=== PATIENT | male | born 1955 | race Hispanic/Latino ===

== ENCOUNTER 2022-09-09 09:40 | Outpatient (CLI) | payer MEDICARE | END 2022-09-09 09:41 | disposition home or self-care (01) | LOC: BICRAD 09:40 | PROVIDERS: ATTEND Family Medicine | DX: S40.012A Contusion of left shoulder, initial encounter (principal); S60.222A Contusion of left hand, initial encounter ==

== ENCOUNTER 2022-09-10 09:08 | Outpatient (CLI) | payer MEDICARE | END 2022-09-10 09:09 | disposition home or self-care (01) | LOC: BICRAD 09:08 | PROVIDERS: ATTEND Family Medicine | DX: R93.89 Abnormal findings on diagnostic imaging of other specified body structures (principal) | CPT/HCPCS: 71046 ==

== ENCOUNTER 2024-02-23 19:38 | Inpatient (IN) | payer MEDICARE ==
[2024-02-23 20:06] LABS: #Basophils Less than 0.03 10x3/uL (0.0-0.2); %Basophils 0.1 % (0.0-1.0); %Eosinophils 0.5 % (0.0-10.0); %Lymphocytes 7.7 % (21.0-51.0); %Monocytes 4.7 % (0.0-10.0); %Neutrophils 86.5 % (42.0-75.0); Hematocrit 38.9 % (42.0-52.0); Hemoglobin 13.3 g/dL (14.0-18.0); Mean Corpuscular HGB CONC 34.2 g/dL (32.0-36.0); Mean Corpuscular Hemoglobin 30.4 pg (27.0-31.0); Mean Corpuscular Volume 88.8 fL (78.0-98.0); Mean Platelet Volume 10.4 fL (7.4-10.4); Platelet Count 248 10x3/uL (130-400); RBC Distribution Width 13.2 % (11.5-14.5); Red Blood Cell (RBC) Count 4.38 mill/uL (4.70-6.10)
[2024-02-23 20:29] LABS: Acetaminophen Less than 10 mcg/mL (Less than 10); Alcohol Less than 10.0 mg/dL (Less than 10); Salicylate Less than 8.0 mg/dL (Less than 8.0)
[2024-02-23 20:34] LABS: Troponin I 0.029 ng/mL (< 0.028)
[2024-02-23] MEDS ORDERED: Morphine 4 MG/ML VIAL ONE (20:36)
[2024-02-23] MEDS ORDERED: Ondansetron PF 4 MG/2 ML Vial ONE (20:36)
[2024-02-23 20:38] LABS: ALT (SGPT) 14 U/L (8-55); AST (SGOT) 18 U/L (5-34); Albumin 3.4 g/dL (3.4-4.8); Alkaline Phosphatase 188 U/L (40-110); Anion Gap 22 mmol/L (10-20); BUN (Urea Nitrogen) 16 mg/dL (8.4-25.7); Bilirubin, Total 0.4 mg/dL (0.2-1.2); Calc. Creatinine Clearance 0 mL/min (70-130); Calcium 9.1 mg/dL (7.8-10.44); Carbon Dioxide 20 mmol/L (23-31); Chloride 96 mmol/L (98-107); Estimated GFR 62; Glucose 409 mg/dL (80-115); Potassium 5.1 mmol/L (3.5-5.1); Protein, Total 7.4 g/dL (5.8-8.1); Sodium 133 mmol/L (136-145)
[2024-02-23] MEDS ORDERED: Insulin Regular, Human 100 UNIT/ML 10 ML VIAL ONE (21:55)
[2024-02-24] MEDS ORDERED: traMADol HCl 50 MG TAB ONE ×2 (05:11→12:11)
[2024-02-24] MEDS ORDERED: Acetaminophen 500 MG TAB ONE ×2 (05:11→12:11)
[2024-02-24] MEDS ORDERED: Ibuprofen 200 MG TAB ONE (05:11)
[2024-02-24] MEDS ORDERED: Famotidine 20 MG TAB ONE (08:11)
[2024-02-24] MEDS ORDERED: Gabapentin 100 MG CAP ONE (08:11)
[2024-02-24] MEDS ORDERED: Carvedilol 25 MG TAB ONE (08:11)
[2024-02-26] MEDS: Gabapentin 100 MG CAP ONE ×4 (00:57→20:08)
[2024-02-26] MEDS: Ibuprofen 200 MG TAB ONE ×3 (00:57→15:49)
[2024-02-26] MEDS: Senokot S 8.6-50 MG TAB ONE ×5 (00:57→20:09)
[2024-02-26] MEDS: traMADol HCl 50 MG TAB ONE ×5 (00:58→15:51)
[2024-02-26] MEDS: Acetaminophen 500 MG TAB ONE ×6 (00:58→15:52)
[2024-02-26 02:05] LABS: #Basophils 0.01 10x3/uL (0.0-0.2); #Eosinophils 0.09 10x3/uL (0.0-0.7); #Monocytes 0.67 10x3/uL (0.11-0.59); #Neutrophils 5.75 10x3/uL (1.40-6.50); %Basophils 0.1 % (0.0-1.0); %Eosinophils 1.2 % (0.0-10.0); %Lymphocytes 14.3 % (21.0-51.0); %Monocytes 8.8 % (0.0-10.0); %Neutrophils 75.3 % (42.0-75.0); Hematocrit 34.9 % (42.0-52.0); Hemoglobin 11.7 g/dL (14.0-18.0); Mean Corpuscular HGB CONC 33.5 g/dL (32.0-36.0); Mean Corpuscular Hemoglobin 29.7 pg (27.0-31.0); Mean Corpuscular Volume 88.6 fL (78.0-98.0); Mean Platelet Volume 11.5 fL (7.4-10.4); Platelet Count 207 10x3/uL (130-400); RBC Distribution Width 13.3 % (11.5-14.5); Red Blood Cell (RBC) Count 3.94 mill/uL (4.70-6.10); White Blood Cell (WBC) Count 7.63 10x3/uL (4.8-10.8)
[2024-02-26] MEDS ORDERED: Dextrose 5% in Water 1,000 ML IV PRN (07:00)
[2024-02-26] MEDS ORDERED: Glucagon 1 MG/ML KIT IM PRN (07:00)
[2024-02-26] MEDS ORDERED: Dextrose 50% Abboject 50 ML SYRINGE SLOW IVP PRN (07:00)
[2024-02-26] MEDS ORDERED: Calcium Carbonate 500 MG ChewTAB PO PRN (07:01)
[2024-02-26] MEDS ORDERED: Ondansetron PF 4 MG/2 ML Vial IVP PRN (07:01)
[2024-02-26] MEDS ORDERED: Ondansetron ODT 4 MG TAB PO PRN (07:01)
[2024-02-26 07:28] LABS: #Basophils Less than 0.03 10x3/uL (0.0-0.2); %Basophils 0.1 % (0.0-1.0); %Eosinophils 0.7 % (0.0-10.0); %Lymphocytes 13.7 % (21.0-51.0); %Monocytes 7.6 % (0.0-10.0); %Neutrophils 77.5 % (42.0-75.0); Hematocrit 35.2 % (42.0-52.0); Hemoglobin 11.7 g/dL (14.0-18.0); Mean Corpuscular HGB CONC 33.2 g/dL (32.0-36.0); Mean Corpuscular Hemoglobin 29.5 pg (27.0-31.0); Mean Corpuscular Volume 88.7 fL (78.0-98.0); Platelet Count 215 10x3/uL (130-400); RBC Distribution Width 13.2 % (11.5-14.5); Red Blood Cell (RBC) Count 3.97 mill/uL (4.70-6.10)
[2024-02-26 07:40] LABS: Anion Gap 16 mmol/L (10-20); BUN (Urea Nitrogen) 27 mg/dL (8.4-25.7); Calc. Creatinine Clearance 0 mL/min (70-130); Calcium 8.4 mg/dL (7.8-10.44); Carbon Dioxide 21 mmol/L (23-31); Chloride 97 mmol/L (98-107); Estimated GFR 52; Glucose 381 mg/dL (80-115); Potassium 4.1 mmol/L (3.5-5.1); Sodium 130 mmol/L (136-145)
[2024-02-26 08:33] LABS: Anion Gap 17 mmol/L (10-20); BUN (Urea Nitrogen) 21 mg/dL (8.4-25.7); Calc. Creatinine Clearance 0 mL/min (70-130); Calcium 8.5 mg/dL (7.8-10.44); Carbon Dioxide 22 mmol/L (23-31); Chloride 99 mmol/L (98-107); Estimated GFR 68; Glucose 167 mg/dL (80-115); Magnesium 1.9 mg/dL (1.6-2.6); Potassium 3.8 mmol/L (3.5-5.1); Sodium 134 mmol/L (136-145)
[2024-02-26] MEDS ORDERED: Acetaminophen 325 MG TAB PO SCH (09:00)
[2024-02-26 14:26] LABS: Troponin I Less than 0.010 ng/mL (< 0.028)
[2024-02-26] MEDS: Carvedilol 25 MG TAB ONE ×4 (14:43→17:32)
[2024-02-26] MEDS: Acetaminophen 325 MG TAB PO SCH (14:43)
[2024-02-26] MEDS: Acetaminophen 325 MG TAB ONE (14:44)
[2024-02-26] MEDS: Lorazepam 1 MG TAB ONE (14:44)
[2024-02-26] MEDS: Famotidine 20 MG TAB PO SCH (14:44)
[2024-02-26] MEDS: Famotidine 20 MG TAB ONE ×2 (14:44→15:50)
[2024-02-26] MEDS: Insulin Glargine 30 UNITS/0.3 ML VIAL ONE ×2 (14:44→15:51)
[2024-02-26] MEDS: Insulin Glargine 30 UNITS/0.3 ML VIAL SC SCH ×2 (14:44→20:01)
[2024-02-26] MEDS: Senokot S 8.6-50 MG TAB PO SCH (14:44)
[2024-02-26] MEDS: Sodium Chloride 0.9% 1,000 ML IV SCH (14:53)
[2024-02-26] MEDS ORDERED: hydrALAZINE 25 MG TAB PO PRN (15:47)
[2024-02-26] MEDS: Famotidine/PF 20 mg/2ml Vial ONE (15:51)
[2024-02-26] MEDS: Insulin Lispro 100 UNIT/ML 10 ML VIAL ONE (15:51)
[2024-02-26] MEDS: Acetaminophen 500 MG TAB PO SCH (17:32)
[2024-02-26] MEDS: Carvedilol 25 MG TAB PO SCH (17:32)
[2024-02-26] MEDS: DorzolamidE/Timolol 2%/0.5% Ophth Soln 10 ml Bottle L EYE SCH (17:32)
[2024-02-26] MEDS: Rosuvastatin 20 MG TAB PO SCH (20:01)
[2024-02-26] MEDS: Methocarbamol 500 MG TAB PO PRN (20:02)
[2024-02-26] MEDS: traMADol HCl 50 MG TAB PO PRN (20:03)
[2024-02-26] MEDS: Tamsulosin HCl 0.4 MG CAP PO SCH (20:07)
[2024-02-26] MEDS: Atorvastatin Calcium 40 MG TAB PO SCH (20:07)
[2024-02-26] MEDS ORDERED: prednisoLONE 1% Ophth Susp 5 ml Bottle L EYE SCH (21:00)
[2024-02-26] MEDS: QUEtiapine 25 MG TAB PO SCH (22:45)
[2024-02-27 05:33] LABS: #Basophils Less than 0.03 10x3/uL (0.0-0.2); %Basophils 0.2 % (0.0-1.0); %Eosinophils 1.9 % (0.0-10.0); %Lymphocytes 18.9 % (21.0-51.0); %Monocytes 8.4 % (0.0-10.0); %Neutrophils 70.4 % (42.0-75.0); Hematocrit 33.3 % (42.0-52.0); Hemoglobin 11.1 g/dL (14.0-18.0); Mean Corpuscular HGB CONC 33.3 g/dL (32.0-36.0); Mean Corpuscular Hemoglobin 29.1 pg (27.0-31.0); Mean Corpuscular Volume 87.2 fL (78.0-98.0); Mean Platelet Volume 11.2 fL (7.4-10.4); Platelet Count 211 10x3/uL (130-400); Red Blood Cell (RBC) Count 3.82 mill/uL (4.70-6.10)
[2024-02-27 06:05] LABS: ALT (SGPT) 7 U/L (8-55); AST (SGOT) 15 U/L (5-34); Albumin 2.6 g/dL (3.4-4.8); Alkaline Phosphatase 138 U/L (40-110); Anion Gap 13 mmol/L (10-20); BUN (Urea Nitrogen) 14 mg/dL (8.4-25.7); Bilirubin, Total 0.4 mg/dL (0.2-1.2); Calc. Creatinine Clearance 0 mL/min (70-130); Carbon Dioxide 23 mmol/L (23-31); Chloride 103 mmol/L (98-107); Estimated GFR 95; Globulin 3.5 g/dL (2.4-3.5); Glucose 185 mg/dL (80-115); Magnesium 1.8 mg/dL (1.6-2.6); Potassium 3.4 mmol/L (3.5-5.1); Protein, Total 6.1 g/dL (5.8-8.1); Sodium 136 mmol/L (136-145)
[2024-02-27] MEDS: Finasteride 5 MG TAB PO SCH (08:48)
[2024-02-27] MEDS: traMADol HCl 50 MG TAB ONE ×2 (08:48→17:07)
[2024-02-27] MEDS: Gabapentin 100 MG CAP ONE ×2 (08:49→15:17)
[2024-02-27] MEDS: Clopidogrel Bisulfate 75 MG TAB PO SCH (08:50)
[2024-02-27] MEDS: Famotidine 20 MG TAB ONE (08:50)
[2024-02-27] MEDS: Ibuprofen 200 MG TAB ONE (08:50)
[2024-02-27] MEDS: Senokot S 8.6-50 MG TAB ONE (08:51)
[2024-02-27] MEDS: Aspirin 81 mg Enteric Coated Tablet PO SCH (08:51)
[2024-02-27] MEDS: Pantoprazole DR 40 MG TAB PO SCH (08:51)
[2024-02-27] MEDS: Insulin Glargine 30 UNITS/0.3 ML VIAL ONE (13:27)
[2024-02-27] MEDS: Lorazepam 1 MG TAB PO SCH (15:17)
[2024-02-27] MEDS: Potassium Chloride 20 MEQ TAB PO SCH (15:18)
[2024-02-27] MEDS: Amlodipine 10 MG TAB PO SCH (15:19)
[2024-02-27] MEDS: Magnesium Oxide 400 MG TAB PO SCH (15:19)
[2024-02-27] MEDS: Carvedilol 25 MG TAB ONE (17:04)
[2024-02-27] MEDS: Insulin Regular, Human 100 UNIT/ML 10 ML VIAL SC PRN (21:10)
[2024-02-28 03:05] VITALS: BMI 37.7
[2024-02-28 05:46] LABS: Anion Gap 14 mmol/L (10-20); BUN (Urea Nitrogen) 12 mg/dL (8.4-25.7); Calc. Creatinine Clearance 103 mL/min (70-130); Carbon Dioxide 20 mmol/L (23-31); Chloride 104 mmol/L (98-107); Estimated GFR 95; Glucose 255 mg/dL (80-115); Magnesium 1.7 mg/dL (1.6-2.6); Sodium 134 mmol/L (136-145)
[2024-02-28] MEDS: Insulin Regular, Human 100 UNIT/ML 10 ML VIAL SC PRN (05:53)
[2024-02-28] MEDS: Famotidine/PF 20 mg/2ml Vial ONE (09:28)
[2024-02-28] MEDS: Magnesium Oxide 400 MG TAB PO SCH (09:29)
[2024-02-28] MEDS: Gabapentin 100 MG CAP ONE (09:30)
[2024-02-28] MEDS: Insulin Glargine 30 UNITS/0.3 ML VIAL ONE (09:30)
[2024-02-28] MEDS: Carvedilol 25 MG TAB ONE ×2 (09:30→17:21)
[2024-02-28] MEDS: Famotidine 20 MG TAB ONE (09:30)
[2024-02-28] MEDS: Senokot S 8.6-50 MG TAB ONE (09:30)
[2024-02-28] MEDS: Amlodipine 10 MG TAB PO SCH (09:31)
[2024-02-28] MEDS: Enoxaparin 40 MG (0.4 mL) SYRINGE SC SCH (09:31)
[2024-02-28] MEDS: Lorazepam 1 MG TAB PO SCH (13:31)
[2024-02-28] MEDS: traMADol HCl 50 MG TAB ONE (13:32)
[2024-02-28] MEDS: Ziprasidone 20 MG VIAL IM SCH (20:58)
[2024-02-28] MEDS: Sterile Water 10 ML VIAL FS SCH (20:58)
[2024-02-28] MEDS: Insulin Glargine 30 UNITS/0.3 ML VIAL SC SCH (21:08)
[2024-02-28 22:46] LABS: Amphetamine Not Detected (NotDetected); Barbiturates Screen Not Detected (NotDetected); Benzodiazepine Screen Detected (NotDetected); Cocaine Metabolite Screen Not Detected (NotDetected); Methadone Not Detected (NotDetected); Methamphetamine Not Detected (NotDetected); Opiate Screen Not Detected (NotDetected); Oxycodone Screen Not Detected (NotDetected); Phencyclidine (PCP) Not Detected (NotDetected); THC/Cannabinoid Screen Not Detected (NotDetected); Tricyclic Screen Not Detected (NotDetected)
[2024-02-29 04:05] LABS: Anion Gap 14 mmol/L (10-20); BUN (Urea Nitrogen) 12 mg/dL (8.4-25.7); Calc. Creatinine Clearance 110 mL/min (70-130); Calcium 8.6 mg/dL (7.8-10.44); Carbon Dioxide 21 mmol/L (23-31); Chloride 103 mmol/L (98-107); Estimated GFR 96; Glucose 183 mg/dL (80-115); Magnesium 1.7 mg/dL (1.6-2.6); Potassium 3.6 mmol/L (3.5-5.1); Sodium 134 mmol/L (136-145)
[2024-02-29 04:25] LABS: HIV (1/2) Antibody/Antigen NONREACTIVE (NonReactive); HIV 1/2 INDEX 0.08 S/CO (<1.00)
[2024-02-29 06:23] LABS: Vitamin B12 581 pg/mL (211-911)
[2024-02-29 10:54] LABS: Syphilis Antibody Nonreactive (Nonreactive); Syphilis Antibody Index 0.06 S/CO (<1.00 Non-Reactive)
[2024-02-29] MEDS: Famotidine 20 MG TAB ONE (12:31)
[2024-02-29] MEDS: Carvedilol 25 MG TAB ONE (12:31)
[2024-02-29] MEDS: Folic Acid 1 MG TAB PO SCH (12:32)
[2024-02-29] MEDS: Cyanocobalamin (Vitamin B-12) 1,000 MCG TAB PO SCH (12:32)
[2024-02-29] MEDS: Famotidine/PF 20 mg/2ml Vial ONE (12:33)
[2024-02-29] MEDS: Gabapentin 100 MG CAP ONE (12:33)
[2024-02-29] MEDS: Insulin Glargine 30 UNITS/0.3 ML VIAL ONE (12:34)
[2024-02-29] MEDS: Acetaminophen 500 MG TAB ONE (13:23)
[2024-03-01] MEDS: Nitroglycerin 2% Ointment 1 INCH/1 GM Packet TOP SCH (03:08)
[2024-03-01 03:53] LABS: Anion Gap 13 mmol/L (10-20); BUN (Urea Nitrogen) 10 mg/dL (8.4-25.7); Calc. Creatinine Clearance 104 mL/min (70-130); Calcium 8.5 mg/dL (7.8-10.44); Carbon Dioxide 21 mmol/L (23-31); Chloride 103 mmol/L (98-107); Estimated GFR 95; Glucose 174 mg/dL (80-115); Magnesium 1.7 mg/dL (1.6-2.6); Potassium 3.5 mmol/L (3.5-5.1); Sodium 133 mmol/L (136-145)
[2024-03-01 03:56] LABS: Troponin I Less than 0.010 ng/mL (< 0.028)
[2024-03-02 05:10] LABS: Anion Gap 13 mmol/L (10-20); BUN (Urea Nitrogen) 11 mg/dL (8.4-25.7); Calc. Creatinine Clearance 94 mL/min (70-130); Calcium 8.7 mg/dL (7.8-10.44); Carbon Dioxide 23 mmol/L (23-31); Chloride 105 mmol/L (98-107); Estimated GFR 89; Glucose 124 mg/dL (80-115); Magnesium 1.7 mg/dL (1.6-2.6); Potassium 3.6 mmol/L (3.5-5.1); Sodium 137 mmol/L (136-145)
[2024-03-02 12:54] VITALS: BMI 37.7
[2024-03-03 01:58] LABS: Bacteria/HPF None Seen HPF (None Seen); Bilirubin Negative (Negative); Blood, Urine Trace (Negative); CAUTI Indications for Culture Alt mental st,lethar; Clarity Clear (Clear); Glucose, Urine (Dipstick) Greater than 1000 mg/dL (Negative); Ketone, Urine Negative (Negative); Leukocyte Negative Leu/uL (Negative); Nitrite Negative (Negative); Protein, Urine (Dipstick) 200 mg/dL (Neg-Trace); RBC/HPF 0-3 HPF (0-3); Squamous Epithelial 0-3 HPF (0-3); Urobilinogen Normal mg/dL (Less than 2)
[2024-03-03 02:00] LABS: Urine Culture Reflex No No
[2024-03-03 05:44] LABS: Anion Gap 12 mmol/L (10-20); BUN (Urea Nitrogen) 12 mg/dL (8.4-25.7); Calc. Creatinine Clearance 98 mL/min (70-130); Calcium 8.5 mg/dL (7.8-10.44); Carbon Dioxide 23 mmol/L (23-31); Chloride 108 mmol/L (98-107); Estimated GFR 93; Glucose 110 mg/dL (80-115); Magnesium 1.5 mg/dL (1.6-2.6); Potassium 3.6 mmol/L (3.5-5.1); Sodium 139 mmol/L (136-145)
[2024-03-03] MEDS: prednisoLONE 1% Ophth Susp 5 ml Bottle L EYE SCH (07:31)
[2024-03-03 16:20] VITALS: BP 109/67; TEMP 98.2
[2024-03-04 15:46] LABS: Chloride 99 mmol/L (98-107); Potassium 4.2 mmol/L (3.5-5.1); Sodium 133 mmol/L (136-145)
[2024-03-04 15:47] LABS: Anion Gap 16 mmol/L (10-20); BUN (Urea Nitrogen) 16 mg/dL (8.4-25.7); Carbon Dioxide 22 mmol/L (23-31); Estimated GFR 58
[2024-03-04 15:52] LABS: Calc. Creatinine Clearance 0 mL/min (70-130)
[2024-03-04 15:53] LABS: Glucose 322 mg/dL (80-115)
[2024-03-04 15:55] LABS: Calcium 8.7 mg/dL (7.6-10.4); Hemoglobin 12.6 g/dL (14.0-18.0); Red Blood Cell (RBC) Count 4.26 mill/uL (4.70-6.10)
[2024-03-04 15:56] LABS: Hematocrit 37.1 % (42.0-52.0); Mean Corpuscular Hemoglobin 29.6 pg (27.0-31.0); Mean Corpuscular Volume 87.1 fL (78.0-98.0); Platelet Count 242 10x3/uL (130-400); RBC Distribution Width 13.4 % (11.5-14.5)
[2024-03-04 15:57] LABS: %Basophils 0.2 % (0.0-1.0); %Eosinophils 0.1 % (0.0-10.0); %Lymphocytes 14.4 % (21.0-51.0); %Monocytes 7.5 % (0.0-10.0); %Neutrophils 77.6 % (42.0-75.0); Manual Diff?? NO
[2024-03-04 15:58] LABS: #Basophils Less than 0.03 10x3/uL (0.0-0.2); #Eosinophils Less than 0.03 10x3/uL (0.0-0.7)
[2024-03-04 16:00] LABS: Troponin I 0.061 ng/mL (< 0.028)
[2024-03-04 16:01] LABS: Troponin I 0.045 ng/mL (< 0.028)
[2024-03-11] MEDS ORDERED: DorzolamidE/Timolol 2%/0.5% Ophth Soln 10 ml Bottle L EYE SCH (09:00)
== END 2024-03-03 16:50 | disposition home health service (06) | DRG 183 ==
LOC: ERS 19:38 → 2NO 23:18 → OBSVTOIN 02-24 13:33 → 2NO 02-25 21:26 → SURG B 03-02 20:15
PROVIDERS: ADMIT Internal Medicine; ATTEND Internal Medicine
PROC: 4A00X4Z Measurement of Central Nervous Electrical Activity, External Approach (ICD-10-PCS; principal; 2024-02-29)
DX: S22.41XA Multiple fractures of ribs, right side, initial encounter for closed fracture (principal); G93.41 Metabolic encephalopathy; I21.A1 Myocardial infarction type 2; S22.21XA Fracture of manubrium, initial encounter for closed fracture; E87.1 Hypo-osmolality and hyponatremia; E87.20 Acidosis, unspecified; I50.32 Chronic diastolic (congestive) heart failure; N17.9 Acute kidney failure, unspecified; E11.65 Type 2 diabetes mellitus with hyperglycemia; N18.30 Chronic kidney disease, stage 3 unspecified; I35.0 Nonrheumatic aortic (valve) stenosis; E11.22 Type 2 diabetes mellitus with diabetic chronic kidney disease; S92.911A Unspecified fracture of right toe(s), initial encounter for closed fracture; R26.89 Other abnormalities of gait and mobility; N40.0 Benign prostatic hyperplasia without lower urinary tract symptoms; V49.9XXA Car occupant (driver) (passenger) injured in unspecified traffic accident, initial encounter
CPT/HCPCS: 36415; 36416; 70450; 70496; 70498; 70551; 71045; 71260; 72125; 74177; 80048; 80053; 80306; 80307; 81001; 82607; 83735; 84443; 84484; 85025; 86780; 87389; 93005; 93010; 95700; 95712; 95957; 96374; 96375; J1650; J1815; J2272; J2405; J3490; J7030

== ENCOUNTER 2024-04-20 20:50 | Inpatient (IN) | payer MEDICARE, OTHER ==
[~2024-04-20 20:50] MED LIST: Iopamidol-370 76% 500 ML MDV (1 ML CHARGE) ONE
[2024-04-20 21:52] LABS: Bacteria/HPF None Seen HPF (None Seen); Bilirubin Negative (Negative); Blood, Urine Trace (Negative); CAUTI Indications for Culture Alt mental st,lethar; Clarity Clear (Clear); Glucose, Urine (Dipstick) Greater than 1000 mg/dL (Negative); Ketone, Urine 10 mg/dL (Negative); Leukocyte Negative Leu/uL (Negative); Nitrite Negative (Negative); Protein, Urine (Dipstick) 70 mg/dL (Neg-Trace); RBC/HPF None Seen HPF (0-3); Squamous Epithelial None Seen HPF (0-3); Urobilinogen Normal mg/dL (Less than 2); WBC/HPF None Seen HPF (0-3)
[2024-04-20 21:53] LABS: Urine Culture Reflex No No
[2024-04-20 21:58] LABS: Analyzer IN Cardio ER; Base Excess (BEa) -1.8 mEq/L (-2.0 to +3.0); CO2 Tension 44.4 mmHg (35.0-45.0); Carboxyhemoglobin (COHb) 1.1 gm% (0.0-3.0); Hematocrit-ABG 41 % (42.0-52.0); Potassium - ABG Lab 4.25 mmol/L (3.70-5.30)
[2024-04-20 22:02] LABS: O2 Tension (PaO2), arterial 21.4 mmHg (> 80.0)
[2024-04-20 22:21] LABS: #Basophils Less than 0.03 10x3/uL (0.0-0.2); #Eosinophils Less than 0.03 10x3/uL (0.0-0.7); %Basophils 0.2 % (0.0-1.0); %Eosinophils 0.1 % (0.0-10.0); %Lymphocytes 4.6 % (21.0-51.0); %Monocytes 4.3 % (0.0-10.0); %Neutrophils 90.4 % (42.0-75.0); Hematocrit 38.4 % (42.0-52.0); Mean Corpuscular HGB CONC 33.9 g/dL (32.0-36.0); Mean Corpuscular Hemoglobin 29.3 pg (27.0-31.0); Mean Corpuscular Volume 86.5 fL (78.0-98.0); Mean Platelet Volume 11.3 fL (7.4-10.4); Platelet Count 254 10x3/uL (130-400); RBC Distribution Width 13.5 % (11.5-14.5); Red Blood Cell (RBC) Count 4.44 mill/uL (4.70-6.10)
[2024-04-20 22:33] LABS: Prothrombin Time 13.3 sec (12.0-14.7)
[2024-04-20 22:34] LABS: PTT 24.5 sec (22.9-36.1)
[2024-04-20 22:45] LABS: ALT (SGPT) 13 U/L (Less than 45); AST (SGOT) 18 U/L (11-34); Albumin 3.2 g/dL (3.1-4.5); Alkaline Phosphatase 246 U/L (40-110); Anion Gap 20 mmol/L (10-20); BUN (Urea Nitrogen) 16 mg/dL (8.4-25.7); Bilirubin, Total 0.3 mg/dL (0.3-1.2); Calc. Creatinine Clearance 0 mL/min (70-130); Calcium 8.8 mg/dL (7.8-10.44); Carbon Dioxide 23 mmol/L (23-31); Chloride 94 mmol/L (98-107); Estimated GFR 73; Globulin 3.3 g/dL (2.4-3.5); Glucose 735 mg/dL (80-115); Potassium 4.7 mmol/L (3.5-5.1); Protein, Total 6.5 g/dL (5.8-8.1); Sodium 132 mmol/L (136-145)
[2024-04-20] MEDS ORDERED: Ketorolac Tromethamine 30 MG (1 mL) VIAL ONE (23:12)
[2024-04-20] MEDS ORDERED: Sodium Chloride 0.9% 100 ML ONE (23:12)
[2024-04-20] MEDS ORDERED: cefTRIAXone (ROCEPHIN) 2 GM VIAL ONE (23:12)
[2024-04-20] MEDS ORDERED: Insulin Regular, Human 100 UNIT/ML 10 ML VIAL ONE (23:12)
[2024-04-20 23:34] LABS: Troponin I 0.046 ng/mL (< 0.028)
[2024-04-20] MEDS ORDERED: Acetaminophen 325 MG TAB PO PRN (23:45)
[2024-04-20] MEDS ORDERED: Ondansetron PF 4 MG/2 ML Vial IVP PRN (23:45)
[2024-04-20] MEDS ORDERED: Ondansetron ODT 4 MG TAB SL PRN (23:45)
[2024-04-21] MEDS ORDERED: Dextrose 50% Abboject 50 ML SYRINGE SLOW IVP PRN (00:27)
[2024-04-21] MEDS ORDERED: Glucagon 1 MG/ML KIT IM PRN (00:27)
[2024-04-21] MEDS ORDERED: Dextrose 5% in Water 1,000 ML IV PRN (00:27)
[2024-04-21] MEDS ORDERED: Ondansetron PF 4 MG/2 ML Vial IVP PRN (01:09)
[2024-04-21] MEDS ORDERED: Ondansetron ODT 4 MG TAB PO PRN (01:09)
[2024-04-21] MEDS ORDERED: Acetaminophen 650 MG Suppository PR PRN (01:09)
[2024-04-21] MEDS ORDERED: Calcium Carbonate 500 MG ChewTAB PO PRN (01:09)
[2024-04-21 01:32] LABS: Lactic Acid 2.14 mmol/L (0.50-2.20)
[2024-04-21] MEDS: Vancomycin (BATCH) 2 GM in Premix 1 BAG IVPB SCH (02:02)
[2024-04-21 02:04] VITALS: BMI 29.8
[2024-04-21] MEDS: Sodium Chloride 0.9% 1,000 ML IV SCH (02:07)
[2024-04-21] MEDS: Piperacillin/Tazobactam 3.375 GM in Sodium Chloride 0.9% 100 ML IVPB SCH ×3 (02:46→09:25)
[2024-04-21 03:47] LABS: #Basophils Less than 0.03 10x3/uL (0.0-0.2); #Eosinophils Less than 0.03 10x3/uL (0.0-0.7); %Basophils 0.1 % (0.0-1.0); %Lymphocytes 11.3 % (21.0-51.0); %Monocytes 6.8 % (0.0-10.0); %Neutrophils 81.5 % (42.0-75.0); Hematocrit 35.5 % (42.0-52.0); Mean Corpuscular HGB CONC 33.8 g/dL (32.0-36.0); Mean Corpuscular Hemoglobin 29.6 pg (27.0-31.0); Mean Corpuscular Volume 87.7 fL (78.0-98.0); Mean Platelet Volume 10.9 fL (7.4-10.4); Platelet Count 227 10x3/uL (130-400); RBC Distribution Width 13.5 % (11.5-14.5); Red Blood Cell (RBC) Count 4.05 mill/uL (4.70-6.10)
[2024-04-21 04:01] LABS: Vancomycin, Random 31.7 ug/mL (See Comment)
[2024-04-21 04:04] LABS: ALT (SGPT) 10 U/L (Less than 45); AST (SGOT) 18 U/L (11-34); Albumin 2.9 g/dL (3.1-4.5); Alkaline Phosphatase 195 U/L (40-110); Anion Gap 20 mmol/L (10-20); BUN (Urea Nitrogen) 12 mg/dL (8.4-25.7); Bilirubin, Total 0.3 mg/dL (0.3-1.2); Calc. Creatinine Clearance 90 mL/min (70-130); Calcium 8.6 mg/dL (7.8-10.44); Carbon Dioxide 20 mmol/L (23-31); Chloride 105 mmol/L (98-107); Estimated GFR 93; Globulin 3.4 g/dL (2.4-3.5); Glucose 369 mg/dL (80-115); Protein, Total 6.3 g/dL (5.8-8.1); Sodium 141 mmol/L (136-145)
[2024-04-21] MEDS ORDERED: Piperacillin/Tazobactam 4.5 GM in Sodium Chloride 0.9% 100 ML IVPB SCH (06:00)
[2024-04-21] MEDS: Insulin Lispro 100 UNIT/ML 10 ML VIAL SC PRN ×2 (06:30→21:35)
[2024-04-21] MEDS ORDERED: metFORMIN 500 MG TAB PO SCH (08:00)
[2024-04-21] MEDS ORDERED: Vancomycin 1.5 GM in Sodium Chloride 0.9% 250 ML 300 ML IVPB SCH (09:00)
[2024-04-21] MEDS: FLU (Fluad Triv) TS24-25 (65UP)/MF59C/PF 45 MCG/0.5 ML Syringe IM ONE (09:15)
[2024-04-21] MEDS: Finasteride 5 MG TAB PO SCH (09:26)
[2024-04-21] MEDS: Carvedilol 25 MG TAB PO SCH (09:26)
[2024-04-21] MEDS: Folic Acid 1 MG TAB PO SCH (09:26)
[2024-04-21] MEDS: Pantoprazole 40 MG DR.TAB PO SCH (09:26)
[2024-04-21] MEDS: Famotidine 20 MG TAB PO SCH (09:26)
[2024-04-21] MEDS: Amlodipine 10 MG TAB PO SCH (09:26)
[2024-04-21] MEDS: Famotidine/PF 20 mg/2ml Vial SLOW IVP SCH (09:29)
[2024-04-21] MEDS: Rosuvastatin 20 MG TAB PO SCH (09:30)
[2024-04-21] MEDS: Insulin Glargine 30 UNITS/0.3 ML VIAL SC SCH (09:30)
[2024-04-21 10:13] VITALS: BMI 29.8
[2024-04-21] MEDS: Vancomycin 1 GM in Premix 1 BAG IVPB SCH (10:56)
[2024-04-21] MEDS ORDERED: Vancomycin HCl 750 MG in Sodium Chloride 0.9% 250 ML 250 ML IVPB SCH (11:00)
[2024-04-22] MEDS: Acetaminophen 325 MG TAB PO PRN (00:21)
[2024-04-23 04:29] LABS: Vancomycin, Random 22.7 ug/mL (See Comment)
[2024-04-24 10:44] VITALS: BP 157/74
[2024-04-24 11:53] VITALS: TEMP 98.3
== END 2024-04-24 13:09 | disposition home health service (06) | DRG 637 ==
LOC: ERS 20:50 → 2SE 23:29
PROVIDERS: ADMIT Student in an Organized Health Care Education/Training Program; ATTEND Hospitalist
PROC: 4A033R1 Measurement of Arterial Saturation, Peripheral, Percutaneous Approach (ICD-10-PCS; 2024-04-20)
PROC: 4A00X4Z Measurement of Central Nervous Electrical Activity, External Approach (ICD-10-PCS; principal; 2024-04-21)
DX: E11.00 Type 2 diabetes mellitus with hyperosmolarity without nonketotic hyperglycemic-hyperosmolar coma (NKHHC) (principal); G93.41 Metabolic encephalopathy; I50.32 Chronic diastolic (congestive) heart failure; E11.22 Type 2 diabetes mellitus with diabetic chronic kidney disease; E11.65 Type 2 diabetes mellitus with hyperglycemia; N18.30 Chronic kidney disease, stage 3 unspecified; I65.23 Occlusion and stenosis of bilateral carotid arteries; G47.33 Obstructive sleep apnea (adult) (pediatric); Z79.84 Long term (current) use of oral hypoglycemic drugs
CPT/HCPCS: 0042T; 36415; 36416; 70450; 70496; 70498; 70551; 71045; 80053; 80202; 81001; 82010; 82140; 82565; 82805; 83605; 84484; 85025; 85610; 85730; 86850; 86870; 86900; 86901; 86922; 87040; 87086; 87428; 93005; 94760; 95700; 95712; 95957; 96365; 96366; 96367; 96375; J0696; J1815; J1885; J2543; J3370; J7030; Q9967